=== PATIENT | female | born 1990 | race Two or more races ===

== ENCOUNTER 2023-11-30 18:42 | Emergency (ER) | payer MEDICAID ==
[~2023-11-30] VITALS: Ht 154.9 cm; Wt 65.9 kg
[2023-11-30] MEDS: LORazepam 2 MG/ML VIAL IM ONE (19:47)
[2023-11-30 22:27] VITALS: BP 116/75; PULSE 71; RESP 17; TEMP 97.3
== END 2023-12-01 00:49 | disposition home or self-care (01) ==
LOC: EMS 18:42 → EDBD 18:42 → EMS 12-01 00:49
DX: F41.0 Panic disorder [episodic paroxysmal anxiety] (principal); F12.90 Cannabis use, unspecified, uncomplicated; Z88.6 Allergy status to analgesic agent
CPT/HCPCS: 99283; 96372; J2060